=== PATIENT | female | born 1945 | race Caucasian/White ===

== ENCOUNTER → 2017-10-22 | Outpatient (CLI) | payer OTHER, MEDICARE ==
[~2017-10-22] MED LIST: ACETAMINOPHEN325 M1 PO; ACUVAIL 0.45%1 EACH OP; ADVAIR 250-501 EACH PO; ASPIRIN EC325 M1 PO; ASPIRIN325 PO; AUGMENTIN 875875 MG PO; B-100 COMPLEX1 EAC1 PO; BACTRIM DS TAB1 EACH PO; BETA CAROTEN25000 IU PO; BIOTIN2500 MCG PO; BOSWELLIA SERRAT1 GM PO; CALCIUM MAGNES1 EAC2 PO; CENTRUM SILVER1 EAC4 PO; CIPROFLOXIN HC2.5 M1 OPHTHALMIC; CLONIDINE0.1 PO; CO Q-10100 M1 PO; CO Q-10100 MG PO; COLACE100 MG PO; DOXYCYCLINE 10100 M1 PO; ELDERBERRY JUICE; HYDROCODONE-AP1 EAC6 PO; IBUPROFEN 600600 M1 PO; IBUPROFEN 800800 M1 PO; KEFLEX500 MG PO; LEVAQUIN 500 M500 M1 PO; METAMUCIL PAC1 UDPKT PO; MILK OF MA2400 MG/10 PO; MOM PO; NEURONTIN 300300 M1 PO; NICOTINE TRANSD21 M1 TRANSDERM; NORCO 10-325 T1 EACH PO; NORCO 5-325 TA1 EACH PO; NORCO 7.5-3251 EACH PO; OMEGA-31000 M1 PO; OXYCODONE HCL 55 MG PO; POLYMYXIN B/TMP10 ML OP; PRED-FORTE OPHTH1 M1 OP; PREDNISONE 10 M10 M1 PO; PRINIVIL20 MG PO; PRINIVIL40 MG PO; PROBIOTIC1 EAC1 PO; PROVENTIL HFA6.7 G1; Protein Supplement PO; ROBITUSSIN DM118 ML PO; SINGULAIR 10 MG10 M1 PO; SPIRIVA INH; STIOLTO RESPIMAT4 GM; SYMBICORT160 MCG/4. INH; TRAMADOL 50 MG50 MG PO; TYLENOL325 MG PO; UNICOMPLEX M TA1 TA1 PO; VENTOLIN HFA 1818 GM PO; VICOPROFEN 2001 EAC1 PO; VITAMIN B COMP1 EAC7 PO; VITAMIN B-121000 MC2 PO; VITAMIN B-12500 MCG PO; VITAMIN B-6100 MG PO; VITAMIN C1000 MG PO; VITAMIN D 5050000 I1 PO; VITAMIN E400 UNIT PO; XARELTO10 M1 PO; ZPAK PO; ZYNCOL30 MG
== END ==
LOC: RAD 10:17
DX: J44.9 Chronic obstructive pulmonary disease, unspecified (principal); J98.11 Atelectasis

== ENCOUNTER → 2018-12-22 | Outpatient (CLI) | payer OTHER, MEDICARE ==
[~2018-12-22] MED LIST changes: +CLEOCIN HCL150 MG PO; +NORCO 5-325 TA1 EAC1 PO
== END ==
LOC: RAD 11:45
DX: R06.02 Shortness of breath (principal)

== ENCOUNTER → 2019-12-01 | Outpatient (CLI) | payer OTHER, MEDICARE | LOC: RAD 10:39 | DX: J44.9 Chronic obstructive pulmonary disease, unspecified (principal); J98.4 Other disorders of lung ==

== ENCOUNTER → 2021-05-18 | Outpatient (CLI) | payer OTHER, MEDICARE ==
[~2021-05-18] MED LIST changes: +CARVEDILOL3.125 MG PO; +CARVEDILOL6.25 M1 PO; +CELEXA 10 MG TA10 M1 PO; +CLEOCIN HCL300 MG PO; +DIFLUCAN150 M1 PO; +FUROSEMIDE 40 M40 MG PO; +PROBIOTIC1 EAC7 PO; +ULTRAM 50MG TAB50 MG PO; +VENTOLIN HFA INH8 GM INH
== END ==
LOC: CAT 10:51
PROVIDERS: ATTEND Family Medicine
DX: Z12.2 Encounter for screening for malignant neoplasm of respiratory organs (principal); Z87.891 Personal history of nicotine dependence